=== PATIENT | female | born 1935 | race Caucasian/White ===

== ENCOUNTER 2021-07-14 02:14 | Emergency (ER) | payer MEDICARE, OTHER ==
[~2021-07-14] VITALS: Ht 157 cm; Wt 59.0 kg
[2021-07-14] MEDS ORDERED: fentaNYL INJ 100 MCG/2 ML AMP IVP STA (02:25)
[2021-07-14 02:34] LABS: BASOPHILS # (AUTO) 0.1 10^3/uL (0.0-0.1); BASOPHILS % (AUTO) 1 % (0-10); EOSINOPHILS # (AUTO) 0.1 10^3/uL (0.0-0.3); EOSINOPHILS % (AUTO) 0 % (0-10); HEMATOCRIT 40 % (35-52); HEMOGLOBIN 12.9 g/dL (11.5-16.0); LYMPHOCYTES # (AUTO) 1.4 10^3/uL (1.0-4.0); LYMPHOCYTES % (AUTO) 11 % (12-44); MEAN CORPUSCULAR HEMOGLOBIN 29 pg (25-34); MEAN CORPUSCULAR HGB CONC 33 g/dL (32-36); MEAN CORPUSCULAR VOLUME 89 fL (80-99); MEAN PLATELET VOLUME 10.3 fL (9.0-12.2); MONOCYTES # (AUTO) 0.9 10^3/uL (0.0-1.0); MONOCYTES % (AUTO) 7 % (0-12); NEUTROPHILS # (AUTO) 10.1 10^3/uL (1.8-7.8); NEUTROPHILS % (AUTO) 80 % (42-75); PLATELET COUNT 352 10^3/uL (130-400); WHITE BLOOD COUNT 12.6 10^3/uL (4.3-11.0)
[2021-07-14 02:45] LABS: INR 1.1 (0.8-1.4); PROTHROMBIN TIME PATIENT 14.1 SEC (12.2-14.7)
[2021-07-14 02:48] LABS: ALBUMIN 4.1 GM/DL (3.2-4.5); POTASSIUM 3.7 MMOL/L (3.6-5.0)
[2021-07-14 02:49] LABS: CALCIUM 9.7 MG/DL (8.5-10.1)
[2021-07-14 02:50] LABS: TOTAL PROTEIN 7.3 GM/DL (6.4-8.2)
[2021-07-14 02:52] LABS: BILIRUBIN,TOTAL 0.6 MG/DL (0.1-1.0)
[2021-07-14 02:54] LABS: CREATININE SERUM 0.95 MG/DL (0.60-1.30)
[2021-07-14 02:57] LABS: MAGNESIUM 2.2 MG/DL (1.6-2.4)
--- NOTE | 2021-07-14 03:03 | ED Hip Pain/Injury ---
General Chief Complaint: Hip/Pelvic Problems Stated Complaint: FALL,RT HIP PAIN Nursing Triage Note: PT TO ED BY [facility] WITH C/O R HIP PAIN. EMS REPORTS PT HAD UNWITNESSED FALL AT HOME AT APPROX MIDNIGHT. DAUGHTER REPORTS PT WAS IN HER RECLINER, GOT UP TO USE THE COMMODE, AND FELL. R LEG SHORTER THAN LEFT, EXTERNAL ROTATION NOTED. GOOD CAP REFIL AND SENSATION. Source: patient (VERY POOR HISTORIAN; HX OF DEMENTIA), family (DAUGHTER GIVES ALL INFORMATION) History of Present Illness Date Seen by Provider: Jul 14, 2021 Time Seen by Provider: 02:18 Initial Comments PT ARRIVES VIA [facility] FROM HOME IN [place] PT HAD AN UNWITNESSED FALL AT HOME AROUND MIDNIGHT PT SLEEPS IN A RECLINER AND HAS A BEDSIDE COMMODE NEXT TO THE RECLINER. DAUGHTER BELIEVES SHE GOT UP TO USE THE COMMODE AND FELL--PT WAS HEARD BY AND IMMEDIATELY CALLED DAUGHTER PT C/O RIGHT HIP PAIN AND HAS SHORTENING AND EXTERNAL ROTATION OF RIGHT LEG DAUGHTER STATES PT HAS FRACTURED HER RIGHT PELVIS TWICE--LAST TIME WAS 03/2021--NO SURGERY REQUIRED NO PRIOR FRACTURE TO HIP ITSELF DAUGHTER STATES PT HAS HAD PRIOR CVA WITH RIGHT SIDE WEAKNESS AND NUMBNESS AND HAS A HISTORY OF FALLS PT HAS PRIOR RIGHT KNEE FRACTURE WITH ORIF WELL. DAUGHTER STATES SHE HAS HAD MULTIPLE BROKEN BONES IN THE PAST DAUGHTER STATES SHE HAS FALLEN 4 TIMES THIS WEEK, LAST TIME WAS YESTERDAY PT IS NEVER ABLE TO GET UP ON HER OWN--ALWAYS REQUIRES A 2 PERSON ASSIST TO GET UP. NORMALLY USES A WALKER ON ASKING PT WHAT HAPPENED AND WHY SHE IS HERE, SHE STATES "I GOT BUSY WORKING AND I FORGOT WHAT I WAS DOING--I WAS CLEANING HOUSE" PT HAS NOT HAD ANYTHING FOR PAIN PT TAKES 325 MG ASPIRIN DAILY, NO OTHER ANTICOAGULATION HER VALSARTAN WAS DC'D 2-3 WEEKS AGO BECAUSE OF HYPOTENSION WITH SYSTOLIC BP'S IN 70'S PER DAUGHTER PT HAS NOT HAD COVID-19 VACCINE, BUT HAS HAD THE FLU VACCINE Other PCP: DR. TAI IN [place] Allergies and Home Medications Allergies Coded Allergies: No Known Drug Allergies (Unverified , 07/14/21) Patient Home Medication List Home Medication List Reviewed: Yes Review of Systems Constitutional: no symptoms reported EENTM: no symptoms reported Respiratory: no symptoms reported Cardiovascular: no symptoms reported Gastrointestinal: no symptoms reported Genitourinary: no symptoms reported Musculoskeletal: see HPI Skin: no symptoms reported Psychiatric/Neurological: See HPI, Pre-Existing Deficit Past Vyjkfpf-Eddzll-Svfpci Hx Patient Social History Tobacco Use?: No Smoking Status: Former Smoker Use of E-Cig and/or Vaping dev: No Substance use?: No Alcohol Use?: No Immunizations Up To Date Influenza Vaccine Up-to-Date: Yes; Up-to-Date First/Initial COVID19 Vaccinat: N/A Past Medical History Surgery/Hospitalization HX: ASTHMA, DEMENTIA, R SIDE WEAKNESS AND NUMBNESS FROM STROKE R PELVIS FX MAR 2021, L KNEE, STENTS X 3 Surgeries: Yes Cardiac, Coronary Stent, Orthopedic Respiratory: No Cardiac: Yes Coronary Artery Disease, Hypertension Neurological: Yes (CHRONIC RIGHT SIDE WEAKNESS AND NUMBNESS) Dementia, Stroke Musculoskeletal: Yes (FALLS, MULTIPLE FRACTURES) Fractures Endocrine: No HEENT: No Cancer: No Psychosocial: No Integumentary: No Physical Exam Vital Signs Vital Signs - First Documented 07/14/21 02:14 Temp 36.0 Pulse 89 Resp 14 B/P (MAP) 144/76 (98) Pulse Ox 96 O2 Delivery Room Air Capillary Refill : Height, Weight, BMI Height: '" Weight: lbs. oz. kg; 23.00 BMI Method: General Appearance: No Apparent Distress, WD/WN, Other (DOES NOT APPEAR TO BE IN ANY DISCOMFORT OR DISTRESS ON ARRIVAL) Neck: Full Range of Motion, Normal Inspection, Non Tender, Supple Cardiovascular: Regular Rate, Rhythm, No Murmur Respiratory: Chest Non Tender, Normal Breath Sounds, No Accessory Muscle Use, No Respiratory Distress Gastrointestinal: Non Tender, Soft Back: No CVA Tenderness, No Vertebral Tenderness Extremity: Other (RIGHT LEG SHORTENED AND EXTERNALLY ROTATED. TENDERNESS TO RIGHT HIP AREA. 1+ EDEMA BILATERALLY WITH CHRONIC VENOUS STASIS CHANGES BILATERALLY. RIGHT MID HUMERUS TENDERNESS. ) Neurologic/Psychiatric: Alert, Normal Mood/Affect, associate vice president II-XII Norm as Tested, Motor Weakness (ON RIGHT/NORMAL BASELINE), Sensory Deficit (ON RIGHT/NORMAL BASELINE), Other (MENTATION IS AT NORMAL BASELINE CONFUSION--ORIENTED TO PERSON AND DAUGHTER, KNOWS HER DATE, BUT DISORIENTED TO PLACE, TIME AND SITUATION, WITH VERY POOR MEMORY. ) Skin: Normal Color, Warm/Dry Progress/Results/Core Measures Results/Orders Lab Results Laboratory Tests Test 07/14/21 02:20 07/14/21 03:20 Range/Units White Blood Count 12.6 H 4.3-11.0 10^3/uL Red Blood Count 4.45 3.80-5.11 10^6/uL Hemoglobin 12.9 11.5-16.0 g/dL Hematocrit 40 35-52 % Mean Corpuscular Volume 89 80-99 fL Mean Corpuscular Hemoglobin 29 25-34 pg Mean Corpuscular Hemoglobin Concent 33 32-36 g/dL Red Cell Distribution Width 14.4 10.0-14.5 % Platelet Count 352 130-400 10^3/uL Mean Platelet Volume 10.3 9.0-12.2 fL Immature Granulocyte % (Auto) 0 % Neutrophils (%) (Auto) 80 H 42-75 % Lymphocytes (%) (Auto) 11 L 12-44 % Monocytes (%) (Auto) 7 0-12 % Eosinophils (%) (Auto) 0 0-10 % Basophils (%) (Auto) 1 0-10 % Neutrophils # (Auto) 10.1 H 1.8-7.8 10^3/uL Lymphocytes # (Auto) 1.4 1.0-4.0 10^3/uL Monocytes # (Auto) 0.9 0.0-1.0 10^3/uL Eosinophils # (Auto) 0.1 0.0-0.3 10^3/uL Basophils # (Auto) 0.1 0.0-0.1 10^3/uL Immature Granulocyte # (Auto) 0.1 0.0-0.1 10^3/uL Prothrombin Time 14.1 12.2-14.7 SEC INR Comment 1.1 0.8-1.4 Activated Partial Thromboplast Time 30 24-35 SEC Sodium Level 136 135-145 MMOL/L Potassium Level 3.7 3.6-5.0 MMOL/L Chloride Level 100 98-107 MMOL/L Carbon Dioxide Level 24 21-32 MMOL/L Anion Gap 12 5-14 MMOL/L Blood Urea Nitrogen 11 7-18 MG/DL Creatinine 0.95 0.60-1.30 MG/DL Estimat Glomerular Filtration Rate 59 BUN/Creatinine Ratio 12 Glucose Level 118 H 70-105 MG/DL Calcium Level 9.7 8.5-10.1 MG/DL Corrected Calcium 9.6 8.5-10.1 MG/DL Magnesium Level 2.2 1.6-2.4 MG/DL Total Bilirubin 0.6 0.1-1.0 MG/DL Aspartate Amino Transf (AST/SGOT) 20 5-34 U/L Alanine Aminotransferase (ALT/SGPT) 15 0-55 U/L Alkaline Phosphatase 155 H 40-136 U/L Total Protein 7.3 6.4-8.2 GM/DL Albumin 4.1 3.2-4.5 GM/DL Urine Color YELLOW Urine Clarity CLEAR Urine pH 6.0 5-9 Urine Specific [place] 1.015 L 1.016-1.022 Urine Protein NEGATIVE NEGATIVE Urine Glucose (UA) NEGATIVE NEGATIVE Urine Ketones NEGATIVE NEGATIVE Urine Nitrite NEGATIVE NEGATIVE Urine Bilirubin NEGATIVE NEGATIVE Urine Urobilinogen 0.2 < = 1.0 MG/DL Urine Leukocyte Esterase 1+ H NEGATIVE Urine RBC (Auto) NEGATIVE NEGATIVE Urine RBC NONE /HPF Urine WBC 0-2 /HPF Urine Squamous Epithelial Cells 0-2 /HPF Urine Crystals NONE /LPF Urine Bacteria TRACE /HPF Urine Casts NONE /LPF Urine Mucus NEGATIVE /LPF Urine Culture Indicated NO Influenza Type A (RT-PCR) Not Detected Not Detecte Influenza Type B (RT-PCR) Not Detected Not Detecte SARS-CoV-2 RNA (RT-PCR) Not Detected Not Detecte My Orders Orders - TIMMY CRENSHAW DO Ed Iv/Invasive Line Start (07/14/21 02:25) Monitor-Rhythm Ecg Trace Only (07/14/21 02:25) Ct Head/Cervical Spine Wo (07/14/21 02:25) Chest 1 View, Ap/Pa Only (07/14/21 02:25) Femur, Right, 2 Views (07/14/21 02:25) Pelvis With Right Hip 2-3views (07/14/21 02:25) Cbc With Automated Diff (07/14/21 02:25) Comprehensive Metabolic Panel (07/14/21 02:25) Magnesium (07/14/21 02:25) Protime With Inr (07/14/21 02:25) Partial Thromboplastin Time (07/14/21 02:25) Ua Culture If Indicated (07/14/21 02:25) Covid 19 Inhouse Test (07/14/21 02:25) Influenza A And B By Pcr (07/14/21 02:25) Isolation Central Supply Req (07/14/21 02:25) Catheter(Urinary) Insert & Ass 03,15 (07/14/21 02:25) Fentanyl Inj (Sublimaze Injection) (07/14/21 02:25) Humerus, Right, 2 Views (07/14/21 03:12) Fentanyl Inj (Sublimaze Injection) (07/14/21 04:15) Medications Given in ED Current Medications Medications Dose Ordered Sig/Gillian Route Start Time Stop Time Status Last Admin Dose Admin Fentanyl Citrate 50 mcg ONCE ONCE IVP 07/14/21 07:15 07/14/21 07:16 DC 07/14/21 07:19 50 MCG Vital Signs/I&O 07/14/21 07/14/21 02:14 08:57 Temp 36.0 Pulse 89 85 Resp 14 18 B/P (MAP) 144/76 (98) 136/96 Pulse Ox 96 98 O2 Delivery Room Air Room Air Blood Pressure Mean: 98 Progress Progress Note : Progress Note NO ORTHOPEDIC SURGEON AVAILABLE THIS WEEKEND. GIVEN FENTANYL FOR PAIN WITH IMPROVEMENT IN PAIN 0600--CARE TURNED OVER TO DR. JENSEN, TRANSPORTATION BY EMS IS STILL PENDING. Diagnostic Imaging Comments CXR--NO ACUTE PROCESS, PENDING RADIOLOGIST REVIEW XRAYS PELVIS AND RIGHT HIP--INTERTROCHANTERIC FRACTURE, PENDING RADIOLOGIST REVIEW XRAYS RIGHT FEMUR--INTERTROCHANTERIC FRACTURE, PENDING RADIOLOGIST REVIEW CT HEAD/CERVICAL SPINE CHRONIC CHANGES, NO ACUTE PROCESS, PER [facility] VIA FAX AT 0324 Reviewed: Reviewed by Me Departure Communication (Admissions) 0324--CALLED [facility]. 0330--SPOKE WITH DR. SRIVASTAVA, ER PHYSICIAN, ACCEPTS PT FOR TRANSFER. 0340--[facility] UNABLE TO TRANSPORT. 0343--[facility] UNABLE TO TRANSPORT. 0355--[facility] UNABLE TO TRANSPORT 0422--CALLED [facility] AND UPDATED THEM ON PROBLEMS WITH ARRANGING TRANSPORT. WILL NOT BE ABLE TO TRANSPORT UNTIL AFTER 0800 THIS AM. 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 Referrals: Tomas TAI DO (PCP/Family) Primary Care Physician TIMMY CRENSHAW DO Jul 14, 2021 03:03
[2021-07-14 03:25] LABS: BILIRUBIN,URINE NEGATIVE (NEGATIVE); CLARITY,URINE CLEAR; COLOR,URINE YELLOW; GLUCOSE, URINE (UA) NEGATIVE (NEGATIVE); KETONES,URINE NEGATIVE (NEGATIVE); LEUKOCYTE ESTERASE ,URINE 1+ (NEGATIVE); NITRITE,URINE NEGATIVE (NEGATIVE); PROTEIN,URINE NEGATIVE (NEGATIVE)
[2021-07-14 03:41] LABS: BACTERIA,URINE TRACE /HPF; SQUAMOUS EPITHELIAL CELL,UR 0-2 /HPF; WBC,URINE 0-2 /HPF
[2021-07-14] MEDS ORDERED: fentaNYL INJ 100 MCG/2 ML AMP IVP ONE ×2 (04:15→07:15)
--- NOTE | 2021-07-14 06:47 | Diagnostic Imaging Report ---
PROCEDURE: CT head and CT cervical spine without contrast. TECHNIQUE: Multiple contiguous axial images were obtained through the brain and cervical spine without the use of intravenous contrast. Sagittal and coronal reformations through the cervical spine were then performed. Auto Exposure Controls were utilized during the CT exam to meet ALARA standards for radiation dose reduction. INDICATION: Fall. No prior studies are available for comparison. CT HEAD: There is a large area of encephalomalacia in the left occipital lobe with dilatation of the occipital horn of the left lateral ventricle. Ventricles and sulci are prominent consistent with patient's age. There is no sulcal effacement or midline shift. No acute intra-axial or extra-axial hemorrhage is detected. Cisterns are patent. Visualized paranasal sinuses are clear. IMPRESSION: Chronic changes, as described. No acute intracranial process is detected. CT cervical spine: Curvature and alignment of the cervical spine is normal. There is some generalized cervical spondylosis with variable disc space narrowing and marginal spurring. There is multilevel facet arthropathy. No fracture or subluxation is identified. Prevertebral tissues are within normal limits. Odontoid is intact. IMPRESSION: Cervical spondylosis. No acute bony abnormality is detected. Dictated by: Dictated on workstation # [id number]
--- NOTE | 2021-07-14 07:06 | Diagnostic Imaging Report ---
EXAMINATION: Two views of the right humerus. INDICATION: Fall. Arm pain. FINDINGS: Two views of the right humerus demonstrate no findings of cortical disruption or evidence to suggest an acute fracture. Alignment of the shoulder and elbow grossly unremarkable on this nondedicated exam. AC joint arthritic changes are present. IMPRESSION: 1. No findings of a right humeral fracture or evidence of malalignment. Dictated by: Dictated on workstation # [id number]
--- NOTE | 2021-07-14 07:17 | Diagnostic Imaging Report ---
INDICATION: Fall. TIME OF EXAM: 2:49 AM No prior studies are available for comparison. The heart is enlarged. There is some density in the medial left lung base. Some infiltrate or atelectasis cannot be entirely excluded. Right lung is clear. No effusion or pneumothorax is seen. IMPRESSION: Left basilar infiltrate or atelectasis. Dictated by: Dictated on workstation # [id number]
--- NOTE | 2021-07-14 07:18 | Diagnostic Imaging Report ---
INDICATION: Fall. TIME OF EXAM: 2:49 AM AP view of the pelvis and two views of the right hip demonstrate intertrochanteric type fracture of the right hip. There is coxa varus deformity. Femoral acetabular alignment is maintained. Left hip is intact. Rami are intact. IMPRESSION: Intertrochanteric right hip fracture. Dictated by: Dictated on workstation # [id number]
--- NOTE | 2021-07-14 07:18 | Diagnostic Imaging Report ---
INDICATION: Fall. TIME OF EXAM: 2:51 AM Frontal and lateral views of the right femur were obtained. There is an acute intertrochanteric type fracture of the right hip with coxa varus deformity. Femoral acetabular alignment is normal. Alignment at the knee is normal. No other fractures are seen. IMPRESSION: Intertrochanteric right hip fracture. Dictated by: Dictated on workstation # [id number]
[2021-07-14 08:57] VITALS: BP 136/96
== END 2021-07-14 09:02 | disposition short-term general hospital (02) ==
LOC: ER 02:19
DX: S72.001A Fracture of unspecified part of neck of right femur, initial encounter for closed fracture (principal); F03.90 Unspecified dementia, unspecified severity, without behavioral disturbance, psychotic disturbance, mood disturbance, and anxiety; R53.1 Weakness; R20.0 Anesthesia of skin; I10 Essential (primary) hypertension; Z20.822 Contact with and (suspected) exposure to COVID-19; Z87.891 Personal history of nicotine dependence; Z86.73 Personal history of transient ischemic attack (TIA), and cerebral infarction without residual deficits; W18.30XA Fall on same level, unspecified, initial encounter
CPT/HCPCS: 36415; 51702; 70450; 71045; 72125; 73060; 73552; 80053; 81000; 83735; 85025; 85610; 85730; 87636; 93041; 96374; 96376